=== PATIENT | female | born 1975 | race Native Hawaiian/Other Pacific Islander ===

== ENCOUNTER 2018-09-08 18:32 | Emergency (ER) | payer MEDICAID ==
--- NOTE | 2018-09-08 18:40 | Emergency Department Report ---
Chief Complaint: Upper Respiratory Infection Stated Complaint: COUGH Time Seen by Provider: 09/08/18 18:34 - HPI History of Present Illness: cc cough, FEVER, runny nose for 4 days [facility] asthma [facility] psh hernia MSE COMPLETED MSE screening note: Focused history and physical exam performed. Due to findings the following was ordered: ED Disposition for MSE Condition: Stable
[2018-09-08 18:41] VITALS: BP 109/74
[2018-09-08] MEDS ORDERED: DELTASONE PO ONE (18:41)
[2018-09-08] MEDS ORDERED: PROVENTIL IH ONE (18:41)
--- NOTE | 2018-09-08 19:40 | XRay Report ---
FINAL REPORT EXAM: XR CHEST ROUTINE 2V HISTORY: fever hx asthma TECHNIQUE: upright single view chest PRIORS: None. FINDINGS: Cardiac and mediastinal contours are unremarkable. No focal pulmonary infiltrate is identified. No pleural fluid collection seen. Pulmonary vasculature is unremarkable. IMPRESSION: Negative single-view chest
[2018-09-08] MEDS ORDERED: ROBITUSSIN PO ONE (19:45)
[2018-09-08] MEDS ORDERED: IBUPROFEN PO ONE (19:45)
--- NOTE | 2018-09-08 20:50 | Emergency Department Report ---
Addendum entered and electronically signed by JAMES STAUFFER NP 09/08/18 21:39: addendum : Simple Bronchiolitis Patient Name: JESSICA SUAREZ Date of : 75 Patient Status: Emergency Emergency Provider: CASIMIRO RON Date: 09/08/18 21:27 Initialization Date: 09/08/18 21:27 Upper Respiratory HPI - HPI Chief Complaint: Upper Respiratory Infection Stated Complaint: COUGH Time Seen by Provider: 09/08/18 18:34 Duration: 3 Days URI Symptoms: Rhinorrhea: Yes, Sore Throat: Yes, Ear Pain: Yes, Cough: Yes, Shor tness of Breath: Yes, Sick Contacts: Yes, Unable to Take Fluids: No, Urine Output Abnormal: No, Listless Behavior: No Other History: 43 y/o female with hx of bronchitis who presenst for cough sob wheezing noc fever x 3 days cough productive yellow green. symptoms exacerbated by environmental exposure symptoms relieve by nothing tried, pt is tolerating po hydration without n/v. - Home Meds and Allergies Home Medications: Previous Rx's Medication Instructions Recorded Last Taken Type ALBUTEROL Inhaler(NF) [VENTOLIN 2 puff IH Q4H PRN #1 inha 09/08/18 Unknown Rx Inhaler(NF)] Azithromycin [Zithromax Z-GABRIELA] 250 mg PO DAILY #6 tab 09/08/18 Unknown Rx Benzonatate [Tessalon Perles] 100 mg PO Q8HR PRN #30 capsule 09/08/18 Unknown Rx Ibuprofen 800 mg PO TID PRN #30 tablet 09/08/18 Unknown Rx predniSONE [Deltasone] 40 mg PO QDAY 5 Days #10 tab 09/08/18 Unknown Rx Allergies/Adverse Reactions: Allergies Allergy/AdvReac Type Severity Reaction Status Date / Time Penicillins Allergy Rash Verified 09/08/18 18:34 ED Review of Systems ROS: Stated complaint: COUGH Other details as noted in HPI Constitutional: fever Eyes: denies: eye pain, eye discharge, vision change ENT: ear pain, throat pain, congestion Respiratory: cough, shortness of breath, wheezing (was dilated to) Cardiovascular: denies: chest pain, palpitations Endocrine: no symptoms reported (ago) Gastrointestinal: denies: abdominal pain, nausea, vomiting, diarrhea Genitourinary: denies: urgency, dysuria, discharge Musculoskeletal: denies: back pain, joint swelling, arthralgia Skin: denies: rash, lesions Neurological: denies: headache, weakness, paresthesias, vertigo Psychiatric: denies: anxiety, depression Hematological/Lymphatic: denies: easy bleeding, easy bruising ED Past Medical Hx - Past Medical History Previous Medical History?: Yes Hx Asthma: Yes - Surgical History Past Surgical History?: Yes Additional Surgical History: hernia repair - Social History Smoking Status: Current Every Day Smoker Substance Use Type: None - Medications Home Medications: Home Medications Medication Instructions Recorded Confirmed Last Taken Type ALBUTEROL Inhaler(NF) [VENTOLIN 2 puff IH Q4H PRN #1 inha 09/08/18 Unknown Rx Inhaler(NF)] Azithromycin [Zithromax Z-GABRIELA] 250 mg PO DAILY #6 tab 09/08/18 Unknown Rx Benzonatate [Tessalon Perles] 100 mg PO Q8HR PRN #30 capsule 09/08/18 Unknown Rx Ibuprofen 800 mg PO TID PRN #30 tablet 09/08/18 Unknown Rx predniSONE [Deltasone] 40 mg PO QDAY 5 Days #10 tab 09/08/18 Unknown Rx ED Bronchiolitis Physical Exam - Exam General: Vital signs noted. No distress. Alert and acting appropriately. HEENT: Yes Pharyngeal Erythema, Yes Rhinorrhea, No Conjuctival Injection, No Dry Mucous Membranes Ear: Neither TM Bulge, Neither TM Erythema, Neither EAC Discharge Neck: No Adenopathy, No Rigidity Lungs: Yes Good Air Exchange, Yes Wheezes, Yes Cough, No Clear Lung Sounds, No Stridor, No Nasal Flaring, No Retractions, No Use of Accessory Muscles Heart: Yes Regular, No Murmur Abdomen: Yes Normal Bowel Sounds, No Tenderness (lower), No Peritoneal Signs Skin: No Rash, No Eczema Neurologic: Alert and oriented, no deficits. Musculoskeletal: Unremarkable. ED Bronchiolitis Tests - Testing Testing: CXR: Normal/Negative, Rapid Strep: Abnormal/Positive (influenza neg ) Treatments - Treaments Treatment: Improved Albuterol (prednisone ) ED Physical Exam - General Limitations: No Limitations General appearance: alert, in no apparent distress - Head Head exam: Present: atraumatic, normocephalic - Eye Eye exam: Present: normal appearance, PERRL, EOMI Pupils: Present: normal accommodation (valvular) - ENT ENT exam: Present: mucous membranes moist, TM's normal bilaterally, normal external ear exam - Expanded ENT Exam Expanded Ear exam: Present: normal external inspection, other (bilat turbinater erythema boggy clear rhinorrhea post nasal drip ) Mouth exam: Absent: trismus Teeth exam: Present: normal inspection Throat exam: Positive: tonsillar erythema, tonsillomegaly, other (uvula midline no lesions airway is patent ). Negative: tonsillar exudate, R peritonsillar mass, L peritonsillar mass - Neck Neck exam: Present: normal inspection, full ROM. Absent: tenderness, lymphadenopathy, thyromegaly - Respiratory Respiratory exam: Present: wheezes (mild exp wheezed bilat upper lobes ). Absent: respiratory distress, stridor, chest wall tenderness, decreased breath sounds, prolonged expiratory - Expanded Respiratory Exam Expanded Location: Wheezes: Right, Left, Upper - Cardiovascular Cardiovascular Exam: Present: regular rate, normal rhythm, normal heart sounds. Absent: systolic murmur, diastolic murmur, rubs, gallop - GI/Abdominal GI/Abdominal exam: Present: soft, normal bowel sounds. Absent: distended, tenderness, rebound, bruit, hernia - Rectal Rectal exam: Present: deferred - Extremities Exam Extremities exam: Present: normal inspection, full ROM, normal capillary refill. Absent: tenderness, pedal edema, joint swelling - Back Exam Back exam: Present: normal inspection, full ROM. Absent: tenderness, CVA tenderness (R), CVA tenderness (L), rash noted - Neurological Exam Neurological exam: Present: alert, oriented X3, CN II-XII intact, normal gait, reflexes normal - Psychiatric Psychiatric exam: Present: normal affect, normal mood - Skin Skin exam: Present: warm, dry, intact, normal color. Absent: rash ED Course Vital Signs 09/08/18 09/08/18 09/08/18 18:37 19:23 19:37 Temperature 98.6 F Pulse Rate 86 Pulse Rate [ 77 78 Anterior Bilateral Throughout] Respiratory 18 Rate Respiratory 16 16 Rate [Anterior Bilateral Throughout] Blood Pressure 109/74 O2 Sat by Pulse 98 Oximetry 09/08/18 20:07 Temperature Pulse Rate Pulse Rate [ Anterior Bilateral Throughout] Respiratory 18 Rate Respiratory Rate [Anterior Bilateral Throughout] Blood Pressure O2 Sat by Pulse Oximetry ED Medical Decision Making - Lab Data Labs 09/08/18 18:40 Influenza A (Rapid) Negative Influenza B (Rapid) Negative - Radiology Data Radiology results: report reviewed, image reviewed FINAL REPORT EXAM: XR CHEST ROUTINE 2V HISTORY: fever hx asthma TECHNIQUE: upright single view chest PRIORS: None. FINDINGS: Cardiac and mediastinal contours are unremarkable. No focal pulmonary infiltrate is identified. No pleural fluid collection seen. Pulmonary vasculature is unremarkable. IMPRESSION: Negative single-view chest Transcribed By: LISA Dictated By: HEDY BERNSTEIN MD Electronically Authenticated By: HEDY BERNSTEIN MD Signed Date/Time: 09/08/181939 DD/ 38 TD/TT: 09/08/181938 - Medical Decision Making CXR: normal no infiltrates no opacities , symptom improved after neblizer tx. lung sounds improved pt is ambulatory in ed without increased wheezing or sob, pt denies cp there is no dizziness no lightheadedness no fever no n/v, pt in stable condition at this time. plan: will dc to home with rx for zpack , abluterol inhaler, ibuprofen, tessalon pearles, pt will follow up with pcp in 2- 3 days and or return to ed if symptoms worsen, pt verbalized agreement and understanding of discharge plan. Critical care attestation.: If time is entered above; I have spent that time in minutes in the direct care of this critically ill patient, excluding procedure time. ED Disposition Clinical Impression: Bronchitis URI (upper respiratory infection) Qualifiers: URI type: unspecified viral URI Qualified Code(s): J06.9 - Acute upper respiratory infection, unspecified Disposition: DC-01 TO HOME OR SELFCARE Is pt being admited?: No Does the pt Need Aspirin: No Condition: Stable Instructions: Chronic Bronchitis (ED), Upper Respiratory Infection (ED) Prescriptions: ALBUTEROL Inhaler(NF) [VENTOLIN Inhaler(NF)] 2 puff IH Q4H PRN #1 inha PRN Reason: shortness of breath / Wheezing Azithromycin [Zithromax Z-GABRIELA] 250 mg PO DAILY #6 tab Benzonatate [Tessalon Perles] 100 mg PO Q8HR PRN #30 capsule PRN Reason: Cough Ibuprofen 800 mg PO TID PRN #30 tablet PRN Reason: pain fever predniSONE [Deltasone] 40 mg PO QDAY 5 Days #10 tab Referrals: ERIK HUERTA MD [Primary Care Provider] - 3-5 Days Forms: Work/School Release Form(ED) Original Note: Upper Respiratory HPI - HPI Chief Complaint: Upper Respiratory Infection Stated Complaint: COUGH Time Seen by Provider: 09/08/18 18:34 - Home Meds and Allergies Home Medications: Previous Rx's Medication Instructions Recorded Last Taken Type ALBUTEROL Inhaler(NF) [VENTOLIN 2 puff IH Q4H PRN #1 inha 09/08/18 Unknown Rx Inhaler(NF)] Azithromycin [Zithromax Z-GABRIELA] 250 mg PO DAILY #6 tab 09/08/18 Unknown Rx Benzonatate [Tessalon Perles] 100 mg PO Q8HR PRN #30 capsule 09/08/18 Unknown Rx Ibuprofen 800 mg PO TID PRN #30 tablet 09/08/18 Unknown Rx predniSONE [Deltasone] 40 mg PO QDAY 5 Days #10 tab 09/08/18 Unknown Rx Allergies/Adverse Reactions: Allergies Allergy/AdvReac Type Severity Reaction Status Date / Time Penicillins Allergy Rash Verified 09/08/18 18:34 ED Review of Systems ROS: Stated complaint: COUGH Other details as noted in HPI ED Past Medical Hx - Past Medical History Previous Medical History?: Yes Hx Asthma: Yes - Surgical History Past Surgical History?: Yes Additional Surgical History: hernia repair - Social History Smoking Status: Current Every Day Smoker Substance Use Type: None - Medications Home Medications: Home Medications Medication Instructions Recorded Confirmed Last Taken Type ALBUTEROL Inhaler(NF) [VENTOLIN 2 puff IH Q4H PRN #1 inha 09/08/18 Unknown Rx Inhaler(NF)] Azithromycin [Zithromax Z-GABRIELA] 250 mg PO DAILY #6 tab 09/08/18 Unknown Rx Benzonatate [Tessalon Perles] 100 mg PO Q8HR PRN #30 capsule 09/08/18 Unknown Rx Ibuprofen 800 mg PO TID PRN #30 tablet 09/08/18 Unknown Rx predniSONE [Deltasone] 40 mg PO QDAY 5 Days #10 tab 09/08/18 Unknown Rx ED Bronchiolitis Physical Exam - Exam General: Vital signs noted. No distress. Alert and acting appropriately. Neurologic: Alert and oriented, no deficits. Musculoskeletal: Unremarkable. ED Physical Exam - General Limitations: No Limitations ED Course Vital Signs 09/08/18 09/08/18 09/08/18 18:37 19:23 19:37 Temperature 98.6 F Pulse Rate 86 Pulse Rate [ 77 78 Anterior Bilateral Throughout] Respiratory 18 Rate Respiratory 16 16 Rate [Anterior Bilateral Throughout] Blood Pressure 109/74 O2 Sat by Pulse 98 Oximetry 09/08/18 20:07 Temperature Pulse Rate Pulse Rate [ Anterior Bilateral Throughout] Respiratory 18 Rate Respiratory Rate [Anterior Bilateral Throughout] Blood Pressure O2 Sat by Pulse Oximetry Critical care attestation.: If time is entered above; I have spent that time in minutes in the direct care of this critically ill patient, excluding procedure time. ED Disposition Clinical Impression: Bronchitis URI (upper respiratory infection) Qualifiers: URI type: unspecified viral URI Qualified Code(s): J06.9 - Acute upper respiratory infection, unspecified Disposition: DC- TO HOME OR SELFCARE Is pt being admited?: No Does the pt Need Aspirin: No Condition: Stable Instructions: Chronic Bronchitis (ED) Prescriptions: ALBUTEROL Inhaler(NF) [VENTOLIN Inhaler(NF)] 2 puff IH Q4H PRN #1 inha PRN Reason: shortness of breath / Wheezing Azithromycin [Zithromax Z-GABRIELA] 250 mg PO DAILY #6 tab Benzonatate [Tessalon Perles] 100 mg PO Q8HR PRN #30 capsule PRN Reason: Cough Ibuprofen 800 mg PO TID PRN #30 tablet PRN Reason: pain fever predniSONE [Deltasone] 40 mg PO QDAY 5 Days #10 tab Referrals: ERIK HUERTA MD [Primary Care Provider] - 3-5 Days Forms: Work/School Release Form(ED) Time of Disposition: 20:53
--- NOTE | 2018-09-08 21:31 | Emergency Department Report ---
Upper Respiratory HPI - HPI Chief Complaint: Upper Respiratory Infection Stated Complaint: COUGH Time Seen by Provider: 09/08/18 18:34 Duration: 3 Days URI Symptoms: Rhinorrhea: Yes, Sore Throat: Yes, Ear Pain: Yes, Cough: Yes, Shortness of Breath: Yes, Sick Contacts: Yes, Unable to Take Fluids: No, Urine Output Abnormal: No, Listless Behavior: No Other History: 43 y/o female with hx of bronchitis who presenst for cough sob wheezing noc fever x 3 days cough productive yellow green. symptoms exacerbated by environmental exposure symptoms relieve by nothing tried, pt is tolerating po hydration without n/v. - Home Meds and Allergies Home Medications: Previous Rx's Medication Instructions Recorded Last Taken Type ALBUTEROL Inhaler(NF) [VENTOLIN 2 puff IH Q4H PRN #1 inha 09/08/18 Unknown Rx Inhaler(NF)] Azithromycin [Zithromax Z-GABRIELA] 250 mg PO DAILY #6 tab 09/08/18 Unknown Rx Benzonatate [Tessalon Perles] 100 mg PO Q8HR PRN #30 capsule 09/08/18 Unknown Rx Ibuprofen 800 mg PO TID PRN #30 tablet 09/08/18 Unknown Rx predniSONE [Deltasone] 40 mg PO QDAY 5 Days #10 tab 09/08/18 Unknown Rx Allergies/Adverse Reactions: Allergies Allergy/AdvReac Type Severity Reaction Status Date / Time Penicillins Allergy Rash Verified 09/08/18 18:34 ED Review of Systems ROS: Stated complaint: COUGH Other details as noted in HPI Constitutional: fever Eyes: denies: eye pain, eye discharge, vision change ENT: ear pain, throat pain, congestion Respiratory: cough, shortness of breath, wheezing (was dilated to) Cardiovascular: denies: chest pain, palpitations Endocrine: no symptoms reported (ago) Gastrointestinal: denies: abdominal pain, nausea, vomiting, diarrhea Genitourinary: denies: urgency, dysuria, discharge Musculoskeletal: denies: back pain, joint swelling, arthralgia Skin: denies: rash, lesions Neurological: denies: headache, weakness, paresthesias, vertigo Psychiatric: denies: anxiety, depression Hematological/Lymphatic: denies: easy bleeding, easy bruising ED Past Medical Hx - Past Medical History Previous Medical History?: Yes Hx Asthma: Yes - Surgical History Past Surgical History?: Yes Additional Surgical History: hernia repair - Social History Smoking Status: Current Every Day Smoker Substance Use Type: None - Medications Home Medications: Home Medications Medication Instructions Recorded Confirmed Last Taken Type ALBUTEROL Inhaler(NF) [VENTOLIN 2 puff IH Q4H PRN #1 inha 09/08/18 Unknown Rx Inhaler(NF)] Azithromycin [Zithromax Z-GABRIELA] 250 mg PO DAILY #6 tab 09/08/18 Unknown Rx Benzonatate [Tessalon Perles] 100 mg PO Q8HR PRN #30 capsule 09/08/18 Unknown Rx Ibuprofen 800 mg PO TID PRN #30 tablet 09/08/18 Unknown Rx predniSONE [Deltasone] 40 mg PO QDAY 5 Days #10 tab 09/08/18 Unknown Rx ED Bronchiolitis Physical Exam - Exam General: Vital signs noted. No distress. Alert and acting appropriately. HEENT: Yes Pharyngeal Erythema, Yes Rhinorrhea, No Conjuctival Injection, No Dry Mucous Membranes Ear: Neither TM Bulge, Neither TM Erythema, Neither EAC Discharge Neck: No Adenopathy, No Rigidity Lungs: Yes Good Air Exchange, Yes Wheezes, Yes Cough, No Clear Lung Sounds, No Stridor, No Nasal Flaring, No Retractions, No Use of Accessory Muscles Heart: Yes Regular, No Murmur Abdomen: Yes Normal Bowel Sounds, No Tenderness (lower), No Peritoneal Signs Skin: No Rash, No Eczema Neurologic: Alert and oriented, no deficits. Musculoskeletal: Unremarkable. ED Bronchiolitis Tests - Testing Testing: CXR: Normal/Negative, Rapid Strep: Abnormal/Positive (influenza neg ) Treatments - Treaments Treatment: Improved Albuterol (prednisone ) ED Physical Exam - General Limitations: No Limitations General appearance: alert, in no apparent distress - Head Head exam: Present: atraumatic, normocephalic - Eye Eye exam: Present: normal appearance, PERRL, EOMI Pupils: Present: normal accommodation (valvular) - ENT ENT exam: Present: mucous membranes moist, TM's normal bilaterally, normal external ear exam - Expanded ENT Exam Expanded Ear exam: Present: normal external inspection, other (bilat turbinater erythema boggy clear rhinorrhea post nasal drip ) Mouth exam: Absent: trismus Teeth exam: Present: normal inspection Throat exam: Positive: tonsillar erythema, tonsillomegaly, other (uvula midline no lesions airway is patent ). Negative: tonsillar exudate, R peritonsillar mass, L peritonsillar mass - Neck Neck exam: Present: normal inspection, full ROM. Absent: tenderness, l ymphadenopathy, thyromegaly - Respiratory Respiratory exam: Present: wheezes (mild exp wheezed bilat upper lobes ). Absent: respiratory distress, stridor, chest wall tenderness, decreased breath sounds, prolonged expiratory - Expanded Respiratory Exam Expanded Location: Wheezes: Right, Left, Upper - Cardiovascular Cardiovascular Exam: Present: regular rate, normal rhythm, normal heart sounds. Absent: systolic murmur, diastolic murmur, rubs, gallop - GI/Abdominal GI/Abdominal exam: Present: soft, normal bowel sounds. Absent: distended, tenderness, rebound, bruit, hernia - Rectal Rectal exam: Present: deferred - Extremities Exam Extremities exam: Present: normal inspection, full ROM, normal capillary refill. Absent: tenderness, pedal edema, joint swelling - Back Exam Back exam: Present: normal inspection, full ROM. Absent: tenderness, CVA tenderness (R), CVA tenderness (L), rash noted - Neurological Exam Neurological exam: Present: alert, oriented X3, CN II-XII intact, normal gait, reflexes normal - Psychiatric Psychiatric exam: Present: normal affect, normal mood - Skin Skin exam: Present: warm, dry, intact, normal color. Absent: rash ED Course Vital Signs 09/08/18 09/08/18 09/08/18 18:37 19:23 19:37 Temperature 98.6 F Pulse Rate 86 Pulse Rate [ 77 78 Anterior Bilateral Throughout] Respiratory 18 Rate Respiratory 16 16 Rate [Anterior Bilateral Throughout] Blood Pressure 109/74 O2 Sat by Pulse 98 Oximetry 09/08/18 20:07 Temperature Pulse Rate Pulse Rate [ Anterior Bilateral Throughout] Respiratory 18 Rate Respiratory Rate [Anterior Bilateral Throughout] Blood Pressure O2 Sat by Pulse Oximetry ED Medical Decision Making - Lab Data Labs 09/08/18 18:40 Influenza A (Rapid) Negative Influenza B (Rapid) Negative - Radiology Data Radiology results: report reviewed, image reviewed FINAL REPORT EXAM: XR CHEST ROUTINE 2V HISTORY: fever hx asthma TECHNIQUE: upright single view chest PRIORS: None. FINDINGS: Cardiac and mediastinal contours are unremarkable. No focal pulmonary infiltrate is identified. No pleural fluid collection seen. Pulmonary vasculature is unremarkable. IMPRESSION: Negative single-view chest Transcribed By: LISA Dictated By: HEDY BERNSTEIN MD Electronically Authenticated By: HEDY BERNSTEIN MD Signed Date/Time: 09/08/181939 DD/ 38 TD/TT: 09/08/181938 - Medical Decision Making CXR: normal no infiltrates no opacities , symptom improved after neblizer tx. lung sounds improved pt is ambulatory in ed without increased wheezing or sob, pt denies cp there is no dizziness no lightheadedness no fever no n/v, pt in stable condition at this time. plan: will dc to home with rx for zpack , abluterol inhaler, ibuprofen, tessalon pearles, pt will follow up with pcp in 2- 3 days and or return to ed if symptoms worsen, pt verbalized agreement and understanding of discharge plan. Critical care attestation.: If time is entered above; I have spent that time in minutes in the direct care of this critically ill patient, excluding procedure time. ED Disposition Clinical Impression: Bronchitis URI (upper respiratory infection) Qualifiers: URI type: unspecified viral URI Qualified Code(s): J06.9 - Acute upper respiratory infection, unspecified Disposition: DC-01 TO HOME OR SELFCARE Is pt being admited?: No Does the pt Need Aspirin: No Condition: Stable Instructions: Chronic Bronchitis (ED), Upper Respiratory Infection (ED) Prescriptions: ALBUTEROL Inhaler(NF) [VENTOLIN Inhaler(NF)] 2 puff IH Q4H PRN #1 inha PRN Reason: shortness of breath / Wheezing Azithromycin [Zithromax Z-GABRIELA] 250 mg PO DAILY #6 tab Benzonatate [Tessalon Perles] 100 mg PO Q8HR PRN #30 capsule PRN Reason: Cough Ibuprofen 800 mg PO TID PRN #30 tablet PRN Reason: pain fever predniSONE [Deltasone] 40 mg PO QDAY 5 Days #10 tab Referrals: ERIK HUERTA MD [Primary Care Provider] - 3-5 Days Forms: Work/School Release Form(ED)
== END 2018-09-08 21:07 | disposition home or self-care (01) ==
LOC: ED 18:32
DX: J06.9 Acute upper respiratory infection, unspecified (principal); J45.909 Unspecified asthma, uncomplicated; Z88.0 Allergy status to penicillin; F17.200 Nicotine dependence, unspecified, uncomplicated
CPT/HCPCS: 71046; 87400; 94640; 99284; J7512

== ENCOUNTER 2018-10-11 18:58 | Emergency (ER) | payer MEDICAID ==
--- NOTE | 2018-10-11 19:22 | Emergency Department Report ---
Blank Doc - Documentation Documentation: This is a 43-year-old female that presents with left axilla abscess. This initial assessment/diagnostic orders/clinical plan/treatment(s) is/are subject to change based on patient's health status, clinical progression and re- assessment by fellow clinical providers in the ED. Further treatment and workup at subsequent clinical providers discretion. Patient/guardians urged not to elope from the ED as their condition may be serious if not clinically assessed and managed. Initial orders include: 1- Patient sent to [facility] for further evaluation and treatment
[2018-10-11 19:25] VITALS: BP 101/66
[2018-10-11] MEDS ORDERED: XYLOCAINE 1% MPF 5 mL INFILTRATI ONE (23:26)
[2018-10-11] MEDS ORDERED: ULTRAM PO ONE (23:26)
--- NOTE | 2018-10-11 23:55 | Emergency Department Report ---
Abscess Boil HPI - HPI Chief Complaint: Skin/Abscess/Foreign Body Stated Complaint: LT AXILLA PAIN Time Seen by Provider: 10/11/18 19:21 Duration: 3 Days Location: Upper Extremity Severity: Moderate History: Yes Pain, No Fever, No Purulent Drainage, No Numbness, No Foreign Body, No Previous History, No Insect Bite HPI: This is a 43-year-old female that presents with left axilla abscess. this is recurring problem for this patient last episode 4 months ago there is no fever no chills no n/v Home Medications: Previous Rx's Medication Instructions Recorded Last Taken Type ALBUTEROL Inhaler(NF) [VENTOLIN 2 puff IH Q4H PRN #1 inha 09/08/18 Unknown Rx Inhaler(NF)] Azithromycin [Zithromax Z-GABRIELA] 250 mg PO DAILY #6 tab 09/08/18 Unknown Rx Benzonatate [Tessalon Perles] 100 mg PO Q8HR PRN #30 capsule 09/08/18 Unknown Rx Ibuprofen 800 mg PO TID PRN #30 tablet 09/08/18 Unknown Rx predniSONE [Deltasone] 40 mg PO QDAY 5 Days #10 tab 09/08/18 Unknown Rx Sulfamethoxazole/Trimethoprim 1 each PO BID 14 Days #28 tablet 10/12/18 Unknown Rx [Bactrim DS TAB] traMADol [Ultram] 50 mg PO Q6HR PRN #12 tablet 10/12/18 Unknown Rx Allergies/Adverse Reactions: Allergies Allergy/AdvReac Type Severity Reaction Status Date / Time Penicillins Allergy Rash Verified 09/08/18 18:34 ED Review of Systems ROS: Stated complaint: LT AXILLA PAIN Other details as noted in HPI Constitutional: denies: chills, fever Eyes: denies: eye pain, eye discharge, vision change ENT: denies: ear pain, throat pain Respiratory: denies: cough, shortness of breath, wheezing Cardiovascular: denies: chest pain, palpitations Endocrine: no symptoms reported Gastrointestinal: denies: abdominal pain, nausea, diarrhea Genitourinary: denies: urgency, dysuria, discharge Musculoskeletal: denies: back pain, joint swelling, arthralgia Skin: lesions (abscess left axillary ). denies: rash Neurological: denies: headache, weakness, paresthesias Psychiatric: denies: anxiety, depression Hematological/Lymphatic: denies: easy bleeding, easy bruising ED Past Medical Hx - Past Medical History Previous Medical History?: Yes Hx Asthma: Yes - Surgical History Past Surgical History?: Yes Additional Surgical History: hernia repair - Social History Smoking Status: Current Every Day Smoker Substance Use Type: None - Medications Home Medications: Home Medications Medication Instructions Recorded Confirmed Last Taken Type ALBUTEROL Inhaler(NF) [VENTOLIN 2 puff IH Q4H PRN #1 inha 09/08/18 Unknown Rx Inhaler(NF)] Azithromycin [Zithromax Z-GABRIELA] 250 mg PO DAILY #6 tab 09/08/18 Unknown Rx Benzonatate [Tessalon Perles] 100 mg PO Q8HR PRN #30 capsule 09/08/18 Unknown Rx Ibuprofen 800 mg PO TID PRN #30 tablet 09/08/18 Unknown Rx predniSONE [Deltasone] 40 mg PO QDAY 5 Days #10 tab 09/08/18 Unknown Rx Sulfamethoxazole/Trimethoprim 1 each PO BID 14 Days #28 tablet 10/12/18 Unknown Rx [Bactrim DS TAB] traMADol [Ultram] 50 mg PO Q6HR PRN #12 tablet 10/12/18 Unknown Rx ED Abscess Boil Physical Exam - Exam General: Vital signs noted. No distress. Alert and acting appropriately. left axillary abscess 1x2 cm flucuant erythema pain to touch no fever chills , Size: 1 cm Exam: Yes Tenderness, Yes Fluctuance, Yes Surrounding Cellulites/Erythema, Yes Normal Neurologic Exam, Yes Normal Circulation, No Lymphangitis, No Crepitation, No Heart Murmur I & D Note - I & D Note I & D Note: Left before meals abscess Marissa Cj 2 cm fluctuance erythema wound cleaned with Betadine solution anesthesia percent lidocaine 2 mL incision with 11 blade scalpel 1 moderate purulent output and loculations broken.up with blunt forcept probing and irrigated with 30 mL sterile saline sterile dressing applied patient given wound care instructions verbalized understanding of same BLEEDING is controlled patient tolerated procedure with minimal distress ED Course Vital Signs 10/11/18 19:21 Temperature 98.3 F Pulse Rate 90 Respiratory 12 Rate Blood Pressure 101/66 Critical care attestation.: If time is entered above; I have spent that time in minutes in the direct care of this critically ill patient, excluding procedure time. ED Medical Decision Making - Medical Decision Making left axillary abscess for I&D see procedure note all bleeding is controlled sterile dressing is intact pt tolerated procedure with minimal distress pt will follow up with pcp in 2 days for wound check will dc to home with rx for bactrim ds, ultram, pt verbalized understanding and agreement with discharge plan. ED Disposition Clinical Impression: Abscess of left axilla Disposition: DC-01 TO HOME OR SELFCARE Is pt being admited?: No Does the pt Need Aspirin: No Condition: Stable Instructions: Abscess (ED) Prescriptions: Sulfamethoxazole/Trimethoprim [Bactrim DS TAB] 1 each PO BID 14 Days #28 tablet traMADol [Ultram] 50 mg PO Q6HR PRN #12 tablet PRN Reason: Pain Referrals: [facility] [Outside] - 3-5 Days Forms: Work/School Release Form(ED) Time of Disposition: 00:05
== END 2018-10-12 00:25 | disposition home or self-care (01) ==
LOC: ED 18:58
DX: L02.412 Cutaneous abscess of left axilla (principal); J45.909 Unspecified asthma, uncomplicated; F17.200 Nicotine dependence, unspecified, uncomplicated

== ENCOUNTER 2019-03-16 10:50 | Emergency (ER) | payer MEDICAID ==
[2019-03-16] MEDS ORDERED: PROVENTIL IH ONE (11:11)
[2019-03-16] MEDS ORDERED: DELTASONE PO ONE (11:11)
--- NOTE | 2019-03-16 11:13 | Event Note ---
ED Screening Note ED Screening Note: 43 yo asthmatic with co sob no cp This initial assessment/diagnostic orders/clinical plan/treatment(s) is/are subject to change based on patients health status, clinical progression and re- assessment by fellow clinical providers in the ED. Further treatment and workup at subsequent clinical providers discretion. Patient/guardian urged not to elope from the ED as their condition may be serious if not clinically assessed and managed. Initial orders include: duoneb/steroids/xray ACC
--- NOTE | 2019-03-16 11:50 | XRay Report ---
CHEST PA AND LATERAL VIEWS INDICATION: sob w asthma. COMPARISON: 09/08/2018. FINDINGS: Support devices: None. Heart: Within normal limits. Lungs/Pleura: There is mild peribronchial cuffing which could be seen in the setting of reactive/lowe r airways disease. No consolidation, effusion, or pneumothorax. IMPRESSION: 1. Reactive/lower airways disease. No consolidation. Signer Name: Uday Smith MD Signed: 03/16/2019 11:45 AM Workstation Name: [id number]
[2019-03-16] MEDS ORDERED: DUONEB *Not for PRN Use IH ONE (13:32)
--- NOTE | 2019-03-16 13:38 | Emergency Department Report ---
ED Shortness of Breath HPI - General Chief Complaint: Dyspnea/Respdistress Stated Complaint: SOB/VOMIT Time Seen by Provider: 03/16/19 11:07 Source: patient Mode of arrival: Ambulatory Limitations: Physical Limitation - History of Present Illness Initial Comments: This is a 43-year-old female who presents to the emergency room with a cough, vomiting, chills, and shortness of breath. It started last night. Past medical history of asthma. Patient states she ran out of her inhaler one month ago and used her son's inhaler with minimal improvement of symptoms. Patient states symptoms initially started with a cough and chills and progressively worsened. She denies chest pain, wheezing, coryza, or myalgia. MD Complaint: shortness of breath -: Last night Severity: moderate Improves With: upright position Worsens With: exertion, coughing Known History Of: asthma Context: recent URI Associated Symptoms: cough, nausea/vomiting Treatments Prior to Arrival: bronchodilator - Related Data Home Oxygen Therapy: No Previous Rx's Medication Instructions Recorded Last Taken Type ALBUTEROL Inhaler(NF) [VENTOLIN 2 puff IH Q4H PRN #1 inha 09/08/18 Unknown Rx Inhaler(NF)] Azithromycin [Zithromax Z-GABRIELA] 250 mg PO DAILY #6 tab 09/08/18 Unknown Rx Benzonatate [Tessalon Perles] 100 mg PO Q8HR PRN #30 capsule 09/08/18 Unknown Rx Ibuprofen [Ibuprofen 800] 800 mg PO TID PRN #30 tablet 09/08/18 Unknown Rx predniSONE [Deltasone] 40 mg PO QDAY 5 Days #10 tab 09/08/18 Unknown Rx Sulfamethoxazole/Trimethoprim 1 each PO BID 14 Days #28 tablet 10/12/18 Unknown Rx [Bactrim DS TAB] traMADol [Ultram] 50 mg PO Q6HR PRN #12 tablet 10/12/18 Unknown Rx ALBUTEROL Inhaler (OR & NICU) 2 puff IH QID PRN #1 inhalation 03/16/19 Unknown Rx [ProAir HFA Inhaler] Prednisone [predniSONE 10 mg 10 mg PO .TAPER #1 tab.ds.pk 03/16/19 Unknown Rx (6-Day Pack, 21 Tabs)] Allergies Allergy/AdvReac Type Severity Reaction Status Date / Time Penicillins Allergy Rash Verified 03/16/19 10:52 ED Review of Systems ROS: Stated complaint: SOB/VOMIT Other details as noted in HPI Constitutional: chills. denies: fever ENT: denies: ear pain, throat pain Respiratory: cough, shortness of breath, SOB with exertion. denies: wheezing Cardiovascular: denies: chest pain, palpitations Gastrointestinal: denies: abdominal pain, nausea, diarrhea Musculoskeletal: denies: back pain, joint swelling, arthralgia, myalgia Skin: denies: rash, lesions Neurological: denies: headache, weakness, paresthesias Psychiatric: denies: anxiety, depression ED Past Medical Hx - Past Medical History Hx Asthma: Yes - Surgical History Additional Surgical History: hernia repair - Social History Smoking Status: Never Smoker Substance Use Type: None - Medications Home Medications: Home Medications Medication Instructions Recorded Confirmed Last Taken Type ALBUTEROL Inhaler(NF) [VENTOLIN 2 puff IH Q4H PRN #1 inha 09/08/18 Unknown Rx Inhaler(NF)] Azithromycin [Zithromax Z-GABRIELA] 250 mg PO DAILY #6 tab 09/08/18 Unknown Rx Benzonatate [Tessalon Perles] 100 mg PO Q8HR PRN #30 capsule 09/08/18 Unknown Rx Ibuprofen [Ibuprofen 800] 800 mg PO TID PRN #30 tablet 09/08/18 Unknown Rx predniSONE [Deltasone] 40 mg PO QDAY 5 Days #10 tab 09/08/18 Unknown Rx Sulfamethoxazole/Trimethoprim 1 each PO BID 14 Days #28 tablet 10/12/18 Unknown Rx [Bactrim DS TAB] traMADol [Ultram] 50 mg PO Q6HR PRN #12 tablet 10/12/18 Unknown Rx ALBUTEROL Inhaler (OR & NICU) 2 puff IH QID PRN #1 inhalation 03/16/19 Unknown Rx [ProAir HFA Inhaler] Prednisone [predniSONE 10 mg 10 mg PO .TAPER #1 tab.ds.pk 03/16/19 Unknown Rx (6-Day Pack, 21 Tabs)] ED Physical Exam - General Limitations: Physical Limitation General appearance: alert, in no apparent distress - ENT ENT exam: Present: normal orophraynx (uvula midline), mucous membranes moist, TM's normal bilaterally, normal external ear exam - Respiratory Respiratory exam: Present: decreased breath sounds (bilateral lower leg). Absent: respiratory distress, wheezes, rales, rhonchi, stridor, chest wall tenderness - Cardiovascular Cardiovascular Exam: Present: regular rate, normal rhythm. Absent: systolic murmur, diastolic murmur, rubs, gallop - GI/Abdominal GI/Abdominal exam: Present: soft, normal bowel sounds. Absent: distended, tenderness, guarding, rebound, rigid - Neurological Exam Neurological exam: Present: alert, oriented X3 - Psychiatric Psychiatric exam: Present: normal affect, normal mood - Skin Skin exam: Present: warm, dry, intact, normal color. Absent: rash ED Course Vital Signs 03/16/19 11:06 Temperature 97.8 F Pulse Rate 96 H Respiratory 16 Rate Blood Pressure 104/77 O2 Sat by Pulse 96 Oximetry ED Medical Decision Making - Radiology Data Radiology results: report reviewed CHEST PA AND LATERAL VIEWS INDICATION: sob w asthma. COMPARISON: 09/08/2018. FINDINGS: Support devices: None. Heart: Within normal limits. Lungs/Pleura: There is mild peribronchial cuffing which could be seen in the setting of reactive/lower airways disease. No consolidation, effusion, or pneumothorax. IMPRESSION: 1. Reactive/lower airways disease. No consolidation. - Medical Decision Making Patient examined by me and in slight distress. Vitals stable. History of Asthma. Noncompliant with medication. She ran out of albuterol inhaler 1 month ago. Given albuterol inhaler, duoneb treatment once, and prednisone 60 mg po once in ER. Patient reports feeling better. Chest x-ray obtained and dictated radiology. 1. Reactive/lower airways disease. No consolidation. Start albuterol and prednisone taper. Discharged home stable. Encouraged to do supportive care for URI. Return to work tomorrow. Critical care attestation.: If time is entered above; I have spent that time in minutes in the direct care of this critically ill patient, excluding procedure time. ED Disposition Clinical Impression: Shortness of breath on exertion, Cough in adult patient Reactive airway disease with acute exacerbation Qualifiers: Asthma severity: mild Asthma persistence: intermittent Qualified Code(s): J45.21 - Mild intermittent asthma with (acute) exacerbation Disposition: - TO HOME OR SELFCARE Is pt being admited?: No Does the pt Need Aspirin: No Condition: Stable Instructions: Reactive Airways Disease (ED) Additional Instructions: It is important to use inhaler or have active albuterol inhaler and avoiding asthma triggers. Complete full course of prednisone steroids as prescribed. Follow up with Primary Care Provider in 24-72 hours. Prescriptions: Prednisone [predniSONE 10 mg (6-Day Pack, 21 Tabs)] 10 mg PO .TAPER #1 tab.ds.pk ALBUTEROL Inhaler (OR & NICU) [ProAir HFA Inhaler] 2 puff IH QID PRN #1 inhalation PRN Reason: Shortness Of Breath Referrals: [facility] [Outside] - 3-5 Days [facility] [Outside] - 3-5 Days [facility] [Outside] - 3-5 Days Forms: Work/School Release Form(ED) Time of Disposition: 13:53
[2019-03-16 14:46] VITALS: BP 107/65
== END 2019-03-16 14:46 | disposition home or self-care (01) ==
LOC: ED 10:50
DX: J45.21 Mild intermittent asthma with (acute) exacerbation (principal); Z79.899 Other long term (current) drug therapy; Z98.890 Other specified postprocedural states; Z88.0 Allergy status to penicillin
CPT/HCPCS: 71046; 94640; 99283; J7512; 94644